=== PATIENT | male | born 1985 | race Caucasian/White ===

== ENCOUNTER 2022-09-13 19:56 | Emergency (ER) | payer SELFPAY ==
[~2022-09-13] VITALS: Ht 172.7 cm; Wt 88.5 kg
[2022-09-13 21:08] VITALS: BP 136/94
--- NOTE | 2022-09-13 21:31 | NUR ---
PT TO BED 01
--- NOTE | 2022-09-13 21:37 | NUR ---
Dr. Dyer examining patient.
[2022-09-13] MEDS ORDERED: IBUP-2213 PO (21:43)
[2022-09-13] MEDS ORDERED: LOSA50TA66 PO (21:43)
[2022-09-13 22:01] VITALS: BP 128/76
--- NOTE | 2022-09-13 22:07 | NUR ---
Patient discharged with v/s stable. Written and verbal after care instructions given and explained. Patient verbalized understanding. Ambulatory with steady gait. All questions addressed prior to discharge. Advised to follow up with PMD.
== END 2022-09-13 22:07 | disposition home or self-care (01) ==
LOC: MED 19:56
DX: R51.9 Headache, unspecified (principal); Z76.0 Encounter for issue of repeat prescription; I10 Essential (primary) hypertension; Z79.899 Other long term (current) drug therapy; Z79.1 Long term (current) use of non-steroidal anti-inflammatories (NSAID); Z88.0 Allergy status to penicillin
CPT/HCPCS: 99282

== ENCOUNTER 2023-07-06 20:18 | Emergency (ER) | payer MEDICAID ==
[~2023-07-06] VITALS: Ht 175.3 cm; Wt 81.6 kg
[~2023-07-06 20:18] MED LIST: IBUP-2213 PO; LOSA50TA66 PO
[2023-07-06 20:22] VITALS: BP 168/101; PULSE 98; RESP 16; TEMP 97.4; O2SAT 99
[2023-07-06 20:51] LABS: BASOPHILS % (AUTO) 0.4 % (0.0-2.0); EOSINOPHILS # (AUTO) 0.1 K/uL (0-0.4); EOSINOPHILS % (AUTO) 1.3 % (0.0-4.0); HEMATOCRIT 40.9 % (36-52); HEMOGLOBIN 14.8 g/dL (12.0-18.0); LYMPHOCYTES # (AUTO) 1.4 K/uL (2.0-11.5); MEAN CORPUSCULAR HEMOGLOBIN 33 pg (27-31); MEAN CORPUSCULAR HGB CONC 36 g/dL (33-37); MEAN CORPUSCULAR VOLUME 89.8 fL (80-94); MONOCYTES # (AUTO) 0.8 K/uL (0.8-1.0); MONOCYTES % (AUTO) 8.3 % (1.7-9.3); NEUTROPHILS # (AUTO) 7.5 K/uL (1.8-7.7); PLATELET COUNT (AUTO) 201 K/uL (140-450); RED BLOOD CELL COUNT(AUTO) 4.56 MIL/uL (4.20-6.10); RED CELL DISTRIBUTION WIDTH 13.3 % (11.6-13.7); WHITE BLOOD COUNT (AUTO) 9.9 K/uL (4.8-10.8)
[2023-07-06 20:58] LABS: ANION GAP 10.8 (8-16); CALCIUM 8.6 mg/dL (8.5-10.1); CARBON DIOXIDE 27.8 mmol/L (21-32); CREATININE 1.1 mg/dL (0.6-1.3); POTASSIUM 3.6 mmol/L (3.5-5.1)
[2023-07-06] MEDS ORDERED: LOSA50TA66 PO (21:53)
[2023-07-06 22:14] VITALS: BP 140/68; PULSE 87; RESP 18; O2SAT 98
== END 2023-07-06 22:07 | disposition home or self-care (01) ==
LOC: MED 20:18
DX: I10 Essential (primary) hypertension (principal); R07.89 Other chest pain; R51.9 Headache, unspecified; Z76.0 Encounter for issue of repeat prescription; E11.9 Type 2 diabetes mellitus without complications; Z79.899 Other long term (current) drug therapy; Z88.0 Allergy status to penicillin
CPT/HCPCS: 36415; 70450; 71045; 80048; 84484; 85025; 93005; 99285; Q0092